=== PATIENT | female | born 1955 | race Caucasian/White ===

== ENCOUNTER 2016-10-20 08:27 | Day surgery (SDC) | payer OTHER ==
[~2016-10-20] VITALS: Ht 149.9 cm; Wt 77.2 kg
[2016-10-20 09:00] VITALS: Ht 149.9 cm; Wt 77.2 kg
[2016-10-20] MEDS ORDERED: FENTAnyl 50 MCG/ML VIAL ONE (09:12)
[2016-10-20] MEDS ORDERED: MIDAZOLAM 1 MG/ML 2 ML INJ ONE ×2 (09:12)
[2016-10-20] MEDS ORDERED: PROPOFOL 20 ML ONE (09:30)
[2016-10-20 09:31] VITALS: BP 216/80; PULSE 67; RESP 20
[2016-10-20] MEDS ORDERED: PRAV40TA76 PO (09:42)
[2016-10-20] MEDS ORDERED: CARV25TA79 PO (09:42)
[2016-10-20] MEDS ORDERED: LORA10TA3 PO (09:42)
[2016-10-20] MEDS ORDERED: LEVO50TA74 PO (09:42)
[2016-10-20] MEDS ORDERED: LISI20TA11 PO (09:42)
[2016-10-20] MEDS ORDERED: AMLO-147 PO (09:42)
[2016-10-20] MEDS ORDERED: ASPI81TA3 PO (09:42)
[2016-10-20] MEDS ORDERED: HYD25 PO (09:42)
[2016-10-20] MEDS ORDERED: MTF1000T PO (09:42)
--- NOTE | 2016-10-20 10:10 | OPR ---
Date/Time of Note Date/Time of Note DATE: 10/20/16 TIME: 10:04 Operative Report Free Text/Dictation Dr. Wills dictating the operative procedure Procedure EGD Preop diagnosis patient presenting with a history of occult GI bleeding Rule out peptic ulcer disease gastritis Postop diagnosis multiple erosions in the antrum Polypoid fold noted in the gastric fundus Mild reflux esophagitis Biopsies were done After informed written consent is obtained intravenous anesthesia was given by anesthesiologist Dr. Wilder The patient becomes somnolent Olympus video upper endoscope was introduced into the oropharynx and into the esophagus There is evidence of mild reflux esophagitis above the GE junction Scope was advanced into the stomach multiple erosions were noted in the antrum Polypoid fold was noted in the gastric fundus diffuse mild gastritis was noted Biopsy was done from the antrum the lesser curvature in the fundus to rule out H. pylori infection Biopsy was done from the polypoid fold Duodenum was examined which appeared normal up to the end of the third portion Plan recommend wait for the pathology report meanwhile Dexilant 60 mg once a day for 2 months Colonoscopy No I am dictating the procedure colonoscopy on the same patient preop diagnosis occult GI bleeding rule out colorectal neoplasm Rule out AV malformation diverticulosis Postop diagnosis of diverticular 4 mm polyp noted in the mid descending colon After informed written consent is obtained Patient was asked to lay on the left lateral side intervenous anesthesia was given by anesthesiologist Dr. Wilder The patient becomes somnolent Olympus videocolonoscope was introduced into the rectum and advanced all the way to the cecum Multiple diverticula noted all over the colon no bleeding noted 4 mm flat polyp was noted in the mid descending colon this polyp was removed with the help of her biopsy forceps The way out minimal internal hemorrhoids were noted The scope was withdrawn the minimal external hemorrhoids were noted and the procedure was terminated plan recommend wait for the pathology report Further colonoscopy will be decided based on the pathology report End of dictation please and copy to my office and also the family doctor Dr. Laura Polo Procedure Date: Oct 20, 2016 CHIQUITA WILLS MD Oct 20, 2016 10:10
[2016-10-20 10:32] VITALS: BP 159/72; PULSE 59; RESP 14
== END 2016-10-20 10:34 | disposition home or self-care (01) ==
LOC: GIL 08:27
PROVIDERS: ATTEND Internal Medicine Gastroenterology
DX: K92.1 Melena (principal); K29.50 Unspecified chronic gastritis without bleeding; D12.2 Benign neoplasm of ascending colon; K20.9 Esophagitis, unspecified; E11.9 Type 2 diabetes mellitus without complications; E78.5 Hyperlipidemia, unspecified; E03.9 Hypothyroidism, unspecified; I10 Essential (primary) hypertension
CPT/HCPCS: 43239; 45380; 82962; 88305; 88312; J2250; J3010; Z7610